=== PATIENT | female | born 1950 | race Hispanic/Latino ===

== ENCOUNTER 2019-04-01 06:55 | Day surgery (SDC) | payer MEDICARE ==
[2019-03-28 14:05] VITALS: BP 112/69
[2019-03-28 14:21] LABS: BASOPHILS % (AUTO) 1.9 % (0.0-5.0); EOSINOPHILS % (AUTO) 4.4 % (0.0-8.0); HEMATOCRIT 32.2 % (36-48); LYMPHOCYTES % (AUTO) 33.3 % (21.0-51.0); MEAN CORPUSCULAR HGB CONC 32.7 g/dL (32.0-36.0); MEAN CORPUSCULAR VOLUME 91.5 fL (79-99); MONOCYTES % (AUTO) 8.8 % (3.0-13.0); NEUTROPHILS % (AUTO) 51.6 % (40.0-77.0); NUCLEATED RED BLOOD CELLS 0.1 % (0.0-0.19); PLATELET COUNT (AUTO) 324 K/uL (130-400); RED BLOOD CELL COUNT(AUTO) 3.52 MIL/uL (4.00-5.50); RED CELL DISTRIBUTION WIDTH 15.8 % (11.0-15.5); WHITE BLOOD COUNT (AUTO) 4.5 K/uL (4.8-10.8)
[~2019-04-01] VITALS: Ht 160 cm; Wt 65.8 kg
[2019-04-01] VITALS (15 sets, daily range): BP systolic 139–165; BP diastolic 60–80
[~2019-04-01 06:55] MED LIST: ACET1TAB25 PO; CYCL30DR OU; DONE10TA43 PO; DORZ10DR19 OP; MONT10TA24 PO; NABU500T3 PO; NALO25TA PO; ONDA4TAB9 PO; SIMV40TA59 PO; VYZULTA OU
[2019-04-01] MEDS ORDERED: OXYMETAZOLINE HCL SPRAY 15 ML BOTTLE ONE (07:50)
[2019-04-01] MEDS ORDERED: LACTATED RINGERS 1000ML 1,000 ML IV ONE (07:50)
[2019-04-01] MEDS ORDERED: OXYMETAZOLINE HCL SPRAY 15 ML BOTTLE NS SCH (08:30)
[2019-04-01] MEDS ORDERED: SCOPOLAMINE HYDROBROMIDE 1 EACH ADH..PATCH TD ONE (09:04)
[2019-04-01] MEDS ORDERED: ONDANSETRON HCL 4 MG/2 ML VIAL ONE (09:04)
[2019-04-01] MEDS ORDERED: SUCCINYLCHOLINE 200MG/10ML SYR ONE (09:15)
[2019-04-01] MEDS ORDERED: LIDOCAINE PF 2% 5ML ABBOJECT ONE (09:15)
[2019-04-01] MEDS ORDERED: DEXAMETHASONE SOD PHOSPHATE 10MG/ML 1ML VIAL ONE ×2 (09:15→09:26)
[2019-04-01] MEDS ORDERED: PROPOFOL 10 MG/ML 20ML VIAL IV ONE (09:16)
[2019-04-01] MEDS ORDERED: FENTANYL CITRATE PF 50 MCG/1 ML 5ML AMP IV ONE (09:16)
[2019-04-01] MEDS ORDERED: MIDAZOLAM HCL 1 MG/ML 2ML VIAL ONE (09:16)
[2019-04-01] MEDS ORDERED: ROCURONIUM 10MG/1ML SYR 10 MG/ML ML ONE (09:16)
[2019-04-01] MEDS ORDERED: BACITRACIN 28.4 GM OINT TP ONE (09:22)
[2019-04-01] MEDS ORDERED: EPINEPHRINE 1 MG/ML 30ML VIAL IJ ONE (09:23)
[2019-04-01] MEDS ORDERED: LIDOCAINE 1%-EPI 1:100,000 20 ML VIAL IJ ONE (09:23)
[2019-04-01] MEDS ORDERED: EPHEDRINE SULFATE 50 MG/ML AMPULE ONE (09:58)
== END 2019-04-01 12:30 | disposition home or self-care (01) ==
LOC: DAH 06:55
PROVIDERS: ATTEND Otolaryngology Plastic Surgery within the Head & Neck
DX: J34.2 Deviated nasal septum (principal); J30.9 Allergic rhinitis, unspecified; J34.3 Hypertrophy of nasal turbinates; K59.00 Constipation, unspecified
CPT/HCPCS: 30140; 30520; 31254; 31267; 36415; 85025; 88304; 88311; 96374; A4215; A4221; A4222; A4223; A4649 ×3; A4663; J0171; J0330; J1100 ×2; J2001; J2250; J2405; J2704; J3010; J3490 ×2; J7040; J7120